=== PATIENT | female | born 1930 | race Caucasian/White ===

== ENCOUNTER 2017-09-12 16:54 | Emergency (ER) | payer OTHER ==
[~2017-09-12] VITALS: Ht 160 cm; Wt 70.0 kg
[2017-09-12 19:39] LABS: HEMATOCRIT 39.1 % (36.0-46.0); HEMOGLOBIN 13.1 G/DL (11.9-15.5); MCH 29.8 PG (29.0-34.0); MCHC 33.5 G/DL (30.0-36.0); MCV 88.9 FL (83-99); PLATELET COUNT 103 K/uL (156-360); RBC DIS.WIDTH-CV 13.5 % (11.8-14.6); RBC DIS.WIDTH-SD 43.9 % (39-53); WHITE BLOOD COUNT 6.2 K/uL (4.1-10.2)
[2017-09-12 19:48] LABS: ALBUMIN 3.8 g/dL (3.2-4.8); CHLORIDE 107 mEq/L (99-109); POTASSIUM 4.1 mEq/L (3.7-5.4); SODIUM 143 mEq/L (136-147)
[2017-09-12 19:50] LABS: GLUCOSE 158 mg/dL (70-99)
[2017-09-12 19:51] LABS: TOTAL PROTEIN 6.5 g/dL (6.4-8.3)
[2017-09-12 19:52] LABS: TOTAL BILIRUBIN 1.2 mg/dL (0.0-1.0)
[2017-09-12 19:54] LABS: ALKALINE PHOSPHATASE 54 IU/L (3-129); GFR ESTIMATE (CALCULATED) 56 mL/min/
[2017-09-12 19:55] LABS: UREA NITROGEN (BUN) 27 mg/dL (9-23)
[2017-09-12 19:56] LABS: AST (GOT) 16 IU/L (2-34)
[2017-09-12 19:57] LABS: ALT (GPT) 12 IU/L (3-49)
[2017-09-12 20:00] LABS: TROP-I INTERPRETATION NEGATIVE; TROPONIN-I < 0.01 ng/mL (0.0-0.30)
[2017-09-12 23:00] VITALS: BP 163/87
== END 2017-09-12 23:09 | disposition home or self-care (01) ==
LOC: EME 16:54
PROVIDERS: Emergency Medicine
DX: I10 Essential (primary) hypertension (principal); M54.2 Cervicalgia; M25.512 Pain in left shoulder; R20.0 Anesthesia of skin; Z90.49 Acquired absence of other specified parts of digestive tract
CPT/HCPCS: 70450; 80053; 83880; 84484; 85027; 99281; 99285; J0360